=== PATIENT | male | born 2000 | race Caucasian/White ===

== ENCOUNTER 2019-05-17 03:09 | Emergency (ER) | payer SELFPAY ==
[~2019-05-17] VITALS: Ht 180.3 cm; Wt 131.0 kg
[2019-05-17] MEDS ORDERED: ONDANSETRON HCL 4MG/2ML INJ IV ONE (05:45)
[2019-05-17] MEDS ORDERED: SODIUM CHLORIDE 0.9% 1,000 ML IV ONE (05:45)
[2019-05-17 07:32] LABS: BASOPHILS % 0.6 % (0.0-2.0); EOSINOPHILS % 1.1 % (0.0-5.0); HEMOGLOBIN. 15.6 g/dL (14.0-18.0); LYMPHOCYTES % 29.7 % (20.0-50.0); MEAN CORPUSCULAR HEMOGLOBIN 30.6 pg (28.0-32.0); MEAN CORPUSCULAR VOLUME 88.3 fL (80.0-94.0); MEAN PLATELET VOLUME 8.8 fl (7.4-10.4); NEUTROPHILS % 61.6 % (40.0-76.0); PLATELET 194 x1000/uL (130-400); RED BLOOD CELL COUNT 5.09 mill/uL (4.7-6.1); RED CELL DISTRIBUTION WIDTH 13.7 % (11.6-14.6)
[2019-05-17 07:40] LABS: CHLORIDE 107 mEq/L (98-107)
[2019-05-17 07:44] LABS: ETHANOL BLOOD 206 mg/dL
[2019-05-17 08:01] LABS: CLARITY URINE CLEAR (CLEAR); COLOR URINE YELLOW (YELLOW); KETONES URINE NEGATIVE (NEGATIVE); LEUKOCYTE ESTERASE URINE NEGATIVE (NEGATIVE); NITRITE URINE NEGATIVE (NEGATIVE); OCCULT BLOOD URINE NEGATIVE (NEGATIVE); PH URINE 6.5 (4.5-8.0); PROTEIN URINE NEGATIVE (NEGATIVE); SPECIFIC GRAVITY URINE 1.011 (1.005-1.030)
[2019-05-17 08:15] LABS: *AMPHETAMINES SCREEN URINE NEGATIVE (NEGATIVE); *BARBITURATES SCREEN URINE NEGATIVE (NEGATIVE); *BENZODIAZEPINES SCREEN URINE NEGATIVE (NEGATIVE); *COCAINE SCREEN URINE NEGATIVE (NEGATIVE); METHADONE URINE SCREEN NEGATIVE (NEGATIVE); OPIATES URINE SCREEN NEGATIVE (NEGATIVE); PHENCYCLIDINE URINE SCREEN NEGATIVE (NEGATIVE)
[2019-05-17 08:16] LABS: CANNABINOID URINE SCREEN NEGATIVE (NEGATIVE)
[2019-05-17 11:07] VITALS: BP 105/50
== END 2019-05-17 11:10 | disposition home or self-care (01) ==
LOC: ER 03:09
DX: F10.129 Alcohol abuse with intoxication, unspecified (principal); Y90.7 Blood alcohol level of 200-239 mg/100 ml
CPT/HCPCS: 36415; 80053; 80305; 80307; 80320; 80329; 81003; 85025; 96361; 96374; 99283; J2405; J7030; Z7610; G0480